=== PATIENT | female | born 1990 | race African-American/Black ===

== ENCOUNTER 2018-06-09 18:25 | Emergency (ER) | payer OTHER ==
[~2018-06-09] VITALS: Ht 172.7 cm; Wt 77.1 kg
--- NOTE | 2018-06-09 18:25 | NUR ---
PT BIB SELF C/O R SHOULDER PAIN FOR 10 DAYS, PT IS AAOX4, NOT IN RESPIRATORY DISTRESS, VS STABLE, KEPT RESTED AND COMFORTABLE.
--- NOTE | 2018-06-09 18:32 | NUR ---
DR. MEDINA AT BEDSIDE FOR EVAL.
[2018-06-09] MEDS ORDERED: HYDROCODONE/APAP 5/325MG 1 EACH TABLET PO ONE (19:00)
[2018-06-09] MEDS ORDERED: HYDROCODONE/APAP 5/325MG 1 EACH TABLET ONE (19:02)
--- NOTE | 2018-06-09 19:17 | NUR ---
RADIOLOGY AT BEDSIDE FOR XRAY.
--- NOTE | 2018-06-09 19:23 | NUR ---
REPORT GIVEN TO PATRICIO BLAKELY FOR RUPINDER.
[2018-06-09 21:42] VITALS: BP 119/76
== END 2018-06-09 21:04 | disposition home or self-care (01) ==
LOC: ER 18:27
DX: M25.511 Pain in right shoulder (principal)
CPT/HCPCS: 73030; 99283; A4606; Z7610